=== PATIENT | male | born 1985 | race Caucasian/White ===

== ENCOUNTER 2018-06-14 13:53 | Emergency (ER) | payer OTHER ==
[2018-06-14 14:15] VITALS: BP 117/56; PULSE 81; TEMP 97; BMI 22.8
--- NOTE | 2018-06-14 14:47 | PDOC ---
History of Present Illness - General Chief Complaint: Ingrown toenail Stated Complaint: TOE SWOLLEN Time Seen by Provider: 06/14/18 14:27 History Source: Patient Exam Limitations: No Limitations - History of Present Illness Initial Comments: CHIEF COMPLAINT: 32 y/o male with PMH autism, OCD, aspergers BIB worker from [facility] for ingrown toenail. HISTORY OF PRESENT ILLNESS: Worker states the patient was seen by the [employer] 3 days ago and was diagnosed with an ingrown toenail of left big toe and informed he would need surgery to remove. Worker states there is now pus coming from the toe nail. Worker denies fever, streaking. Vital signs on arrival are within normal limits. REVIEW OF SYSTEMS: GENERAL/CONSTITUTIONAL: No fever/chills. No weakness. No weight change. MUSCULOSKELETAL: +left ingrown toenail with yellow discharge. No neck or back pain. SKIN: No rash or easy bruising. NEUROLOGIC: No headache, vertigo, loss of consciousness, or loss of sensation. PHYSICAL EXAM: VITAL_SIGNS: within normal limits GENERAL_APPEARANCE: alert, cooperative, no obvious discomfort. Patient is ambulatory with normal gait. MENTAL_STATUS: speech clear, oriented X 3, responds appropriately to questions. NEURO: motor intact and sensory intact in injured extremity. EXTREMITIES: good pulse in injured extremity. Left hallux with extreme ingrown toenail with purulent discharge coming from nail. Surrounding erythema that is TTP. No streaking. SKIN: warm, dry, good color. Past History - Past Medical History Allergies/Adverse Reactions: Allergies Allergy/AdvReac Type Severity Reaction Status Date / Time shrimp Allergy Hives Uncoded 06/14/18 14:15 Home Medications: Ambulatory Orders Cholecalciferol (Vitamin D3) [Vitamin D3] 08/16/13 Divalproex [Depakote -] 1,000 mg PO BID 08/16/13 Lorazepam [Ativan] 08/16/13 Polyethylene Glycol 3350 [Miralax 255 gm Btl] 17 gm PO DAILY 08/16/13 Sennosides [Senna] 08/16/13 Ziprasidone [Geodon -] 08/16/13 Sulfamethoxazole/Trimethoprim [Bactrim Ds -] 1 tab PO BID #14 tablet 06/14/18 COPD: No Other medical history: autism, ocd, adhd, - Suicide/Smoking/Psychosocial Hx Smoking Status: No Smoking History: Never smoked Number of Cigarettes Smoked Daily: 0 *Physical Exam - Vital Signs Last Vital Signs Temp Pulse Resp BP Pulse Ox 97 F L 81 18 117/56 99 06/14/18 14:11 06/14/18 14:11 06/14/18 14:11 06/14/18 14:11 06/14/18 14:11 Medical Decision Making - Medical Decision Making A/P: 32 y/o male with left ingrown toenail that is infected. Appears to be MRSA. Will send rx for bactrim. Suggested warm soaks 4-5 times per day and follow up with [employer] tomorrow for surgical removal. The patient's worker. verbalizes understanding of all instructions, has no further questions and is awaiting discharge. *DC/Admit/Observation/Transfer Diagnosis at time of Disposition: Ingrown nail of great toe of left foot - Discharge Dispostion Disposition: HOME Condition at time of disposition: Good - Prescriptions Prescriptions: Sulfamethoxazole/Trimethoprim [Bactrim Ds -] 1 tab PO BID #14 tablet - Referrals Referrals: Anju Clemons [Primary Care Provider] - - Patient Instructions Printed Discharge Instructions: DI for Ingrown Toenail Additional Instructions: Discharge Instructions: -You have an ingrown toenail of your left foot that appears infected -A prescription has been sent to your pharmacy for an antibiotic -Please soak your foot in warm water 4-5 times per day -Please call your [employer] on Friday to schedule appointment for surgery -Return to the ER with any worsening or concerning symptoms - Post Discharge Activity
== END 2018-06-14 15:17 | disposition home or self-care (01) ==
LOC: JERFT 13:53
DX: L60.0 Ingrowing nail (principal); L02.612 Cutaneous abscess of left foot; F90.9 Attention-deficit hyperactivity disorder, unspecified type; F84.5 Asperger's syndrome; F42.9 Obsessive-compulsive disorder, unspecified
CPT/HCPCS: 99281-25

== ENCOUNTER 2018-09-13 18:37 | Emergency (ER) | payer OTHER ==
[2018-09-13 19:32] VITALS: BP 133/80; PULSE 83; BMI 24.2
--- NOTE | 2018-09-13 19:36 | PDOC ---
History of Present Illness - General History Source: Patient, [facility] Records Exam Limitations: No Limitations - History of Present Illness Initial Comments: 09/13/18 19:39 The patient is a year old male, with a significant past medical history of autism, OCD, aspergers, who presents to the emergency department from [facility] with, a laceration to the head. As per facility workers he is accompanied by, he slammed his head through glass. Patient is a poor historian due to his clinical condition. As per nursing facility, his last tetanus was 2008. Allergies: Shrimp <Lorin Reeder - Last Filed: 09/13/18 19:38> <Mony Rodriguez - Last Filed: 09/13/18 20:05> - General Chief Complaint: Laceration Stated Complaint: LACERATION TO HEAD Time Seen by Provider: 09/13/18 19:15 Past History <Lorin Reeder - Last Filed: 09/13/18 19:38> - Past Medical History COPD: No Psychiatric Problems: Yes (autistic aspergers, int. explosive behaivor ocd) - Suicide/Smoking/Psychosocial Hx Smoking Status: No Smoking History: Never smoked Have you smoked in the past 12 months: No Number of Cigarettes Smoked Daily: 0 Information on smoking cessation initiated: No Hx Alcohol Use: No Drug/Substance Use Hx: No <Mony Rodriguez - Last Filed: 09/13/18 20:05> - Past Medical History Allergies/Adverse Reactions: Allergies Allergy/AdvReac Type Severity Reaction Status Date / Time shrimp Allergy Verified 09/13/18 19:35 shrimp Allergy Hives Uncoded 06/14/18 14:15 Home Medications: Ambulatory Orders Cholecalciferol (Vitamin D3) [Vitamin D3] 08/16/13 Divalproex [Depakote -] 1,000 mg PO BID 08/16/13 Lorazepam [Ativan] 08/16/13 Polyethylene Glycol 3350 [Miralax 255 gm Btl] 17 gm PO DAILY 08/16/13 Sennosides [Senna] 08/16/13 Ziprasidone [Geodon -] 08/16/13 Sulfamethoxazole/Trimethoprim [Bactrim Ds -] 1 tab PO BID #14 tablet 06/14/18 Review of Systems - Review of Systems Able to Perform ROS?: Yes Comments:: 09/13/18 19:39 CONSTITUTIONAL: Present: Laceration to the head. Absent: fever, no chills, no fatigue EYES: Absent: visual changes ENT: Absent: ear pain, no sore throat CARDIOVASCULAR: Absent: chest pain, no palpitations RESPIRATORY: Absent: cough, no SOB GI: Absent: abdominal pain, no nausea, no vomiting, no constipation, no diarrhea GENITOURINARY: Absent: dysuria, no frequency, no hematuria MUSKULOSKELETAL: Absent: back pain, no arthralgia, no myalgia SKIN: Absent: rash NEURO: Absent: headache All Other Systems: Reviewed and Negative <Lorin Reeder - Last Filed: 09/13/18 19:38> *Physical Exam - Vital Signs Last Vital Signs Temp Pulse Resp BP Pulse Ox 83 18 133/80 100 09/13/18 18:50 09/13/18 18:50 09/13/18 18:50 09/13/18 18:50 - Physical Exam Comments: 09/13/18 19:40 GENERAL: Well developed, well nourished. Awake and alert. No acute distress. +HEENT: 2cm semicircular laceration with surrounding abrasion. PERRLA, EOMI. No conjunctival pallor. Sclera are non-icteric. Moist mucous membranes. Oropharynx is clear. NECK: Supple. Full ROM. No JVD. Carotid pulses 2+ and symmetric, without bruits. No thyromegaly. No lymphadenopathy. CARDIOVASCULAR: Regular rate and rhythm. No murmurs, rubs, or gallops. Distal pulses are 2+ and symmetric. PULMONARY: No evidence of respiratory distress. Lungs clear to auscultation bilaterally. No wheezing, rales or rhonchi. ABDOMINAL: Soft. Non-tender. Non-distended. No rebound or guarding. No organomegaly. Normoactive bowel sounds. MUSCULOSKELETAL Normal range of motion at all joints. No bony deformities or tenderness. No CVA tenderness. EXTREMITIES: No cyanosis. No clubbing. No edema. No calf tenderness. SKIN: Warm and dry. Normal capillary refill. No rashes. No jaundice. NEUROLOGICAL: Alert, awake, appropriate. Cranial nerves 2-12 intact. No deficits to light touch and temperature in face, upper extremities and lower extremities. No motor deficits in the in face, upper extremities and lower extremities. Normoreflexic in the upper and lower extremities. Normal speech. Toes are down- going bilaterally. Gait is normal without ataxia. <Lorin Reeder - Last Filed: 09/13/18 19:38> - Vital Signs Last Vital Signs Temp Pulse Resp BP Pulse Ox 83 18 133/80 100 09/13/18 18:50 09/13/18 18:50 09/13/18 18:50 09/13/18 18:50 <Mony Rodriguez - Last Filed: 09/13/18 20:05> Procedures - Laceration/Wound Repair Head Wound Length: to 2.5 cm Wound Explored: no foreign body present Wound's Depth, Shape: irregular (Semicircular.) Irrigated w/ Saline: Yes Wound Debrided: extensive Wound Repaired With: Dermabond Sterile Dressing Applied: No <Lorin Reeder - Last Filed: 09/13/18 19:38> Medical Decision Making - Medical Decision Making 09/13/18 19:43 Call placed to Salty Kaye, stock house worker, case discussed. Informed tetanus was not up to date and story of incident. Return precautions made aware. <Lorin Reeder - Last Filed: 09/13/18 19:38> - Medical Decision Making 09/13/18 19:47 wound cleansed and no pieces of glass found in wound. Area irrigated w copious amt sterile water. Closed with dermabond. Tetanus updated since last one was in 2008 <Mony Rodriguez - Last Filed: 09/13/18 20:05> *DC/Admit/Observation/Transfer - Attestations Scribe Attestion: 09/13/18 19:45 Documentation prepared by Lorin Reeder, acting as medical record clerk for Mony Rodriguez MD. <Lorin Reeder - Last Filed: 09/13/18 19:38> <Mony Rodriguez - Last Filed: 09/13/18 20:05> Diagnosis at time of Disposition: Tetanus-diphtheria vaccination administered at current visit Scalp laceration Qualifiers: Encounter type: initial encounter Qualified Code(s): S01.01XA - Laceration without foreign body of scalp, initial encounter Scalp abrasion Qualifiers: Encounter type: initial encounter Qualified Code(s): S00.01XA - Abrasion of scalp, initial encounter - Discharge Dispostion Disposition: HOME Condition at time of disposition: Good - Patient Instructions Printed Discharge Instructions: Tetanus, DI for Laceration Repair, DI for Laceration Repair With Dermabond Additional Instructions: This patient had a BOOSTRIX (tetanus) immunization at this visit His scalp wound was cleansed and closed with dermabond He may require acetaminophen or ibuprofen for pain over the next few days
[2018-09-13] MEDS ORDERED: DIPHTH,PERTUSS(ACELL),TET 0.5 ML DISP.SYRIN IM ONE (19:45)
== END 2018-09-13 20:07 | disposition home or self-care (01) ==
LOC: JER 18:37
PROC: 3E0234Z Introduction of Serum, Toxoid and Vaccine into Muscle, Percutaneous Approach (ICD-10-PCS; principal; 2018-09-13)
PROC: 0HQ0XZZ Repair Scalp Skin, External Approach (ICD-10-PCS; 2018-09-13)
DX: S01.01XA Laceration without foreign body of scalp, initial encounter (principal); W25.XXXA Contact with sharp glass, initial encounter; Y93.89 Activity, other specified; Y92.198 Other place in other specified residential institution as the place of occurrence of the external cause; Y99.8 Other external cause status; F84.5 Asperger's syndrome; F60.5 Obsessive-compulsive personality disorder; F60.3 Borderline personality disorder
CPT/HCPCS: 12001; 90471; 90715; 99283-25

== ENCOUNTER 2019-10-04 18:15 | Emergency (ER) | payer OTHER ==
[2019-10-04 18:31] VITALS: BP 120/66; PULSE 76; TEMP 98.4; BMI 24.2
--- NOTE | 2019-10-04 18:42 | PDOC ---
History of Present Illness - General Chief Complaint: Ingrown toenail Stated Complaint: INGROWN NAIL Time Seen by Provider: 10/04/19 18:30 - History of Present Illness Initial Comments: 10/04/19 18:39 33-year-old nonverbal male who strikes out in anger presents for evaluation of left toe redness x1 day first noticed by his caregiver Past History - Past Medical History Allergies/Adverse Reactions: Allergies Allergy/AdvReac Type Severity Reaction Status Date / Time shrimp Allergy Verified 10/04/19 18:38 shrimp Allergy Hives Uncoded 10/04/19 18:38 Home Medications: Ambulatory Orders Cholecalciferol (Vitamin D3) [Vitamin D3] 08/16/13 Divalproex [Depakote -] 1,000 mg PO BID 08/16/13 Lorazepam [Ativan] 08/16/13 Polyethylene Glycol 3350 [Miralax 255 gm Btl] 17 gm PO DAILY 08/16/13 Sennosides [Senna] 08/16/13 Ziprasidone [Geodon -] 08/16/13 Sulfamethoxazole/Trimethoprim [Bactrim Ds -] 1 tab PO BID #14 tablet 06/14/18 Cephalexin [Keflex] 500 mg PO QID #40 capsule 10/04/19 COPD: No Psychiatric Problems: Yes (autistic aspergers, int. explosive behaivor ocd) - Immunization History Immunization Up to Date: No - Psycho Social/Smoking Cessation Hx Smoking Status: No Smoking History: Never smoked Have you smoked in the past 12 months: No Number of Cigarettes Smoked Daily: 0 Information on smoking cessation initiated: No Hx Alcohol Use: No Drug/Substance Use Hx: No Review of Systems - Review of Systems Able to Perform ROS?: No *Physical Exam - Vital Signs Last Vital Signs Temp Pulse Resp BP Pulse Ox 98.4 F 76 16 120/66 98 10/04/19 18:28 10/04/19 18:28 10/04/19 18:28 10/04/19 18:28 10/04/19 18:28 - Physical Exam Comments: 10/04/19 18:40 There is erythema at the left great toe at the nail fold without gross motor deficits Medical Decision Making - Medical Decision Making 10/04/19 18:40 This patient will not tolerate a digital block. I will refer him to podiatry he has an appointment tomorrow Discharge - Discharge Information Problems reviewed: Yes Clinical Impression/Diagnosis: Ingrown nail of great toe of left foot, Cellulitis of toe of left foot Condition: Stable Disposition: HOME - Admission No - Follow up/Referral - Patient Discharge Instructions Patient Printed Discharge Instructions: DI for Ingrown Toenail Additional Instructions: Please start the antibiotics and take them as directed. Follow-up with podiatry tomorrow without fail as scheduled and return to the emergency room should you have further issues - Post Discharge Activity
== END 2019-10-04 19:07 | disposition home or self-care (01) ==
LOC: JERFT 18:15
DX: L03.032 Cellulitis of left toe (principal); F84.5 Asperger's syndrome; F42.9 Obsessive-compulsive disorder, unspecified; F63.81 Intermittent explosive disorder; Z91.013 Allergy to seafood
CPT/HCPCS: 99281-25

== ENCOUNTER 2022-02-06 11:53 | Emergency (ER) | payer OTHER ==
[2022-02-06 12:22] VITALS: BP 122/74; PULSE 69; TEMP 98; BMI 24.5
== END 2022-02-06 13:26 | disposition home or self-care (01) ==
LOC: JERFT 11:53
DX: S90.512A Abrasion, left ankle, initial encounter (principal); Y99.9 Unspecified external cause status
CPT/HCPCS: 73610-TC-LT-FY; 73630-TC-LT; 99283-25